=== PATIENT | male | born 1975 | race American Indian/Alaskan Native ===

== ENCOUNTER 2016-11-03 14:47 | Observation (INO) | payer BC, OTHER ==
--- NOTE | 2016-11-03 15:21 | C.PDOC ---
History Of Present Illness 40M c/o diffuse abd "cramping" rad to his back for the last 4 days assoc w constipation that started a couple hours after he ate at a food truck. he has had the abd cramping w constipation before but not the back pain. he took mag citrate twice and also used two enemas with only small BM. decreased appetite no n/v or fever. no abdominal psh. denies other pmh. drinks etoh on weekends. Time Seen by Provider: 11/03/16 15:21 Chief Complaint (Nursing): Abdominal Pain Past Medical History Vital Signs: Last Vital Signs Temp 97.9 F 11/03/16 22:44 Pulse 68 11/03/16 22:44 Resp 20 11/03/16 22:44 BP 125/74 11/03/16 22:44 Pulse Ox 97 11/03/16 23:51 Family History: States: Other (nc) - Social History Hx Alcohol Use: Yes Hx Substance Use: No - Immunization History Hx Tetanus Toxoid Vaccination: Yes Hx Influenza Vaccination: No Hx Pneumococcal Vaccination: No Review Of Systems Except As Marked, All Systems Reviewed And Found Negative. Constitutional: Negative for: Fever, Chills, Weakness Cardiovascular: Negative for: Chest Pain Respiratory: Negative for: Cough, Shortness of Breath Gastrointestinal: Positive for: Abdominal Pain, Constipation. Negative for: Nausea, Vomiting, Diarrhea, Hematochezia Genitourinary: Negative for: Dysuria, Frequency Neurological: Negative for: Weakness, Numbness, Headache Physical Exam - Physical Exam Appears: Well, Non-toxic, No Acute Distress Skin: Warm, Dry Head: Atraumatic Eye(s): bilateral: PERRL Oral Mucosa: Moist Neck: Normal ROM Cardiovascular: Rhythm Regular, No Murmur Respiratory: No Decreased Breath Sounds, No Accessory Muscle Use, No Rhonchi, No Stridor, No Wheezing Gastrointestinal/Abdominal: Bowel Sounds, Soft, Tenderness (diffuse), No Distention, No Guarding, No Rebound Neurological/Psych: Oriented x3, Other (no focal deficits) ED Course And Treatment - Laboratory Results Result Diagrams: 11/03/16 16:22 11/03/16 16:22 O2 Sat by Pulse Oximetry: 97 Medical Decision Making Medical Decision Making: disc w hosp Dr Stern who will admit CT Abdomen and Pelvis With Intravenous Contrast. Dictated and Authenticated by: Joy Angel MD CLINICAL HISTORY: 40 years old, male; Pain; Abdominal pain; Additional info: Diffuse abd pain TECHNIQUE: Axial computed tomography images of the abdomen and pelvis with intravenous contrast. This CT exam was performed using one or more of the following dose reduction techniques : automated exposure control, adjustment of the mA and/or kV according to patient size, and/ or use of iterative reconstruction technique. Coronal and sagittal reformatted images were created and reviewed. CONTRAST: 100 mL of Visipaque 320 administered intravenously. EXAM DATE/TIME: 11/03/2016 3:34 PM COMPARISON: There are no prior studies for comparison. FINDINGS: Lower thorax: Heart size is normal. There is a small hiatal hernia. Lung bases are clear ABDOMEN: Liver: There is a 1.9 x 1.8 cm enhancing lesion in the dome of the liver on the right. No other abnormalities are seen in the liver. Gallbladder and bile ducts: Gallbladder is distended. There is a tiny calcified stone. Common bile duct is unremarkable. Pancreas: unremarkable Spleen: unremarkable Adrenals: unremarkable Kidneys and ureters: unremarkable Stomach and bowel: Stomach is partially distended. Rotation is normal. There is mild duodenal and proximal jejunal wall and fold thickening. There is mild distention of mid small bowel loops with airfluid levels. There is no ileal wall thickening. There is no obstruction. Terminal ileum is unremarkable. Appendix is not visualized. There is no pericecal inflammation. Colon is distended. There are air fluid levels in the colon. There is an air-fluid level in the rectum. Appendix: See stomach and bowel PELVIS: Bladder: unremarkable Reproductive: Seminal vesicles and prostate are unremarkable. ABDOMEN and PELVIS: Intraperitoneal space: There is no free air or free fluid. Bones/joints: There Are no acute osseous abnormalities. There is a benign appearing lucent lesion with sclerotic margins in the right hip. Soft tissues: unremarkable Vasculature: Vascular structures are unremarkable. Lymph nodes: There is no pathologic adenopathy. IMPRESSION: Small enhancing lesion in the dome of the liver possibly hemangioma ; no acute solid visceral abnormality; enteritis versus gastroenteritis with ileus. Disposition - Disposition Disposition: HOSPITALIZED Disposition Time: 19:10 Condition: STABLE - Clinical Impression Clinical Impression: Ileus, Enteritis
[2016-11-03] MEDS ORDERED: Iohexol 240 (50 ml) ONE (16:12)
[2016-11-03 16:24] LABS: BASO # 0.1 K/uL (0.0-0.2); BASO % 0.7 % (0.0-2.0); EOS # 0.3 K/uL (0.0-0.7); EOS % 1.9 % (0.0-4.0); HEMATOCRIT 41.3 % (35.0-51.0); LYMPH # 2.8 K/uL (1.0-4.3); LYMPH % 15.4 % (20.0-40.0); MEAN CELL VOLUME 96.5 fL (80.0-94.0); MEAN CORPUSCULAR HEMOGLOBIN 31.9 pg (27.0-31.0); MEAN CORPUSCULAR HGB CONC 33.1 g/dL (33.0-37.0); MEAN PLATELET VOLUME 8.7 fL (7.2-11.7); MONO # 0.9 K/uL (0.0-0.8); MONO % 4.9 % (0.0-10.0); RED CELL DISTRIBUTION WIDTH 13.7 % (11.5-14.5); WHITE BLOOD COUNT 17.9 K/uL (4.8-10.8)
[2016-11-03 16:28] LABS: RBC URINE 11 /hpf (0-3); URINE BILIRUBIN NEGATIVE (NEGATIVE); URINE BLOOD 1+ (NEGATIVE); URINE COLOR Amber (YELLOW); URINE GLUCOSE (UA) NORMAL (Normal); URINE KETONE 1+ mg/dL (NEGATIVE); URINE LEUKOCYTE ESTERASE NEG Leu/uL (Negative); URINE PROTEIN 1+ mg/dL (NEGATIVE); URINE UROBILINOGEN NORMAL mg/dL (0.2-1.0); WBC URINE 1 /hpf (0-5)
[2016-11-03 16:33] LABS: CHLORIDE 93 mmol/L (98-107); POTASSIUM 4.7 mmol/L (3.6-5.2); SODIUM 135 mmol/L (132-148)
[2016-11-03 16:35] LABS: ALB/GLOB RATIO 1.2 (1.0-2.1); AST/SGOT 38 U/L (17-59); BILIRUBIN,TOTAL 0.9 mg/dL (0.2-1.3); CARBON DIOXIDE 29 mmol/L (22-30); GFR AFRICAN-AMERICAN > 60; TOTAL PROTEIN 8.3 g/dL (6.3-8.3)
[2016-11-03 16:36] LABS: ALKALINE PHOSPHATASE 68 U/L (38-126); ALT/SGPT 23 U/L (21-72); BLOOD UREA NITROGEN 14 mg/dL (9-20); CALCIUM 8.9 mg/dl (8.6-10.4); GLUCOSE,RANDOM 83 mg/dL (75-110)
[2016-11-03] MEDS ORDERED: Iohexol 240 (50 ml) PO STA (16:42)
[2016-11-03] MEDS ORDERED: Iodixanol 320 MG/ML 100 ML BOTTLE IV ONE (17:20)
--- NOTE | 2016-11-03 19:00 | CT ---
EXAM: CT Abdomen and Pelvis With Intravenous Contrast. CLINICAL HISTORY: 40 years old, male; Pain; Abdominal pain; Additional info: Diffuse abd pain TECHNIQUE: Axial computed tomography images of the abdomen and pelvis with intravenous contrast. This CT exam was performed using one or more of the following dose reduction techniques: automated exposure control, adjustment of the mA and/or kV according to patient size, and/or use of iterative reconstruction technique. Coronal and sagittal reformatted images were created and reviewed. CONTRAST: 100 mL of Visipaque 320 administered intravenously. EXAM DATE/TIME: 11/03/2016 3:34 PM COMPARISON: There are no prior studies for comparison. FINDINGS: Lower thorax: Heart size is normal. There is a small hiatal hernia. Lung bases are clear ABDOMEN: Liver: There is a 1.9 x 1.8 cm enhancing lesion in the dome of the liver on the right. No other abnormalities are seen in the liver. Gallbladder and bile ducts: Gallbladder is distended. There is a tiny calcified stone. Common bile duct is unremarkable. Pancreas: unremarkable Spleen: unremarkable Adrenals: unremarkable Kidneys and ureters: unremarkable Stomach and bowel: Stomach is partially distended. Rotation is normal. There is mild duodenal and proximal jejunal wall and fold thickening. There is mild distention of mid small bowel loops with air-fluid levels. There is no ileal wall thickening. There is no obstruction. Terminal ileum is unremarkable. Appendix is not visualized. There is no pericecal inflammation. Colon is distended. There are air fluid levels in the colon. There is an air-fluid level in the rectum. Appendix: See stomach and bowel PELVIS: Bladder: unremarkable Reproductive: Seminal vesicles and prostate are unremarkable. ABDOMEN and PELVIS: Intraperitoneal space: There is no free air or free fluid. Bones/joints: There Are no acute osseous abnormalities. There is a benign appearing lucent lesion with sclerotic margins in the right hip. Soft tissues: unremarkable Vasculature: Vascular structures are unremarkable. Lymph nodes: There is no pathologic adenopathy. IMPRESSION: Small enhancing lesion in the dome of the liver possibly hemangioma; no acute solid visceral abnormality; enteritis versus gastroenteritis with ileus Additional findings as described above.
[2016-11-03] MEDS ORDERED: Sodium Chloride 0.9% 1,000 ML IV ONE (19:04)
[2016-11-03] MEDS ORDERED: metroNIDAZOLE IV 500 mg/100 ml 100 ML IVPB STA (19:04)
[2016-11-03] MEDS ORDERED: Ciprofloxacin 400mg/200ml D5W 200 ML IVPB STA (19:04)
[2016-11-03] MEDS ORDERED: Sodium Chloride 0.9% 1,000 ML IV SCH (19:15)
[2016-11-03] MEDS ORDERED: Sodium Chloride 0.9% 1,000 ML ONE (19:20)
[2016-11-03] MEDS ORDERED: Morphine 4 MG/ML VIAL ONE (19:20)
--- NOTE | 2016-11-03 20:36 | CP.PCM.HP ---
History of Present Illness - History of Present Illness History of Present Illness: CC: diffuse abdominal pain/cramping rad to back x 4 days with associated constipation HPI: 40M with no PMHx - presents c/o diffuse abdominal pain/cramping for the last 4 days, with associated constipation. This occured several hours after eating at a food truck. He describes his abdomen as gradually distending, and the pain as gradually increasing, with radiation to his back. He denies a history of abdominal problems or cyclical abdominal pain. He took mag citrate x2 and also used two enemas with minimal relief, producing 3 low volume liquid BM's without formed stool. He also attempted apple cider vinegar and prune juice without relief. He describes his abdomen as tight/bloated, and admits passing gas relieves some pain/pressure. Eating exacerbates the pain, and today is the first day that he refrained from food completely. Denies f/c, chest pain , SOB, n/v, diarrhea, hematochezia, dysuria, LE swelling, or any additional acute complaints. 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 PMD: [place] Present on Admission - Present on Admission Any Indicators Present on Admission: No Review of Systems - Constitutional Constitutional: absent: Chills, Fever, Headache - EENT Eyes: absent: Blind Spots, Blurred Vision Ears: absent: Decreased Hearing, Ear Discharge Nose/Mouth/Throat: absent: Epistaxis, Nasal Congestion, Nose Pain - Cardiovascular Cardiovascular: absent: Chest Pain, Chest Pain at Rest, Dyspnea - Respiratory Respiratory: absent: Cough, Dyspnea, Hemoptysis - Gastrointestinal Gastrointestinal: Bloating, Constipation, Cramping. absent: Diarrhea, Nausea, Vomiting - Genitourinary Genitourinary: absent: Change in Urinary Stream, Difficulty Urinating, Dysuria - Musculoskeletal Musculoskeletal: absent: Arthralgias, Muscle Weakness - Neurological Neurological: absent: Confusion, Dizziness, Numbness, Headaches, Weakness - Psychiatric Psychiatric: absent: Abnormal Sleep Pattern, Anhedonia, Anxiety - Hematologic/Lymphatic Hematologic: absent: Easy Bleeding, Easy Bruising, Lymphadenopathy Past Patient History - Past Social History Smoking Status: Heavy Smoker > 10 Cigarettes Daily - PSYCHIATRIC Hx Substance Use: No - SURGICAL HISTORY Hx Orthopedic Surgery: Yes (Lt knee 2015) - ANESTHESIA Hx Anesthesia: Yes Hx Anesthesia Reactions: No Meds Allergies/Adverse Reactions: Allergies Allergy/AdvReac Type Severity Reaction Status Date / Time No Known Allergies Allergy Verified 11/03/16 14:54 Physical Exam - Constitutional Appears: Non-toxic, No Acute Distress - Head Exam Head Exam: ATRAUMATIC, NORMAL INSPECTION - Eye Exam Eye Exam: EOMI, Normal appearance - ENT Exam ENT Exam: Mucous Membranes Moist - Respiratory Exam Respiratory Exam: Clear to Auscultation Bilateral, NORMAL BREATHING PATTERN. absent: Wheezes - Cardiovascular Exam Cardiovascular Exam: REGULAR RHYTHM, +S1, +S2 - GI/Abdominal Exam GI & Abdominal Exam: Diminished Bowel Sounds, Distended, Normal Bowel Sounds, Soft, Tenderness (diffuse). absent: Firm, Guarding - Extremities Exam Extremities exam: Negative for: pedal edema, tenderness - Neurological Exam Neurological exam: Alert, CN II-XII Intact, Oriented x3 - Psychiatric Exam Psychiatric exam: Normal Affect, Normal Mood - Skin Skin Exam: Dry, Intact, Normal Color Results - Vital Signs Recent Vital Signs: Last Vital Signs Temp 98.7 F 11/03/16 19:42 Pulse 85 11/03/16 19:42 Resp 18 11/03/16 19:42 BP 130/73 11/03/16 19:42 Pulse Ox 100 11/03/16 19:42 - Labs Result Diagrams: 11/04/16 06:08 11/04/16 06:08 Assessment & Plan - Assessment and Plan (Free Text) Assessment: Abdominal pain gastroenteritis vs enteritis GI Consult, Dr. Gillette (will see pt in am) Zofran 4mg IVP Q6H PRN Rocephin 1gm ivpb daily Flagyl 500mg IVPB Q8 daily Toradol 30mg IVP once, PRN -CT Abdomen and Pelvis With Intravenous Contrast - Small enhancing lesion in the dome of the liver possibly hemangioma; no acute solid visceral abnormality; enteritis versus gastroenteritis with ileus. -NPO Leukocytosis WBC 17.9, neutrophils 17.1 Rocephin 1gm ivpb daily Flagyl 500mg IVPB Q8 daily f/u stool leuko, stool culture, ferritin (as sign of inflammation), Fe, ESR, CRP , B12, folate, am labs Constipation -pt took mag citrate x2 + 2 enemas at thurs/fri with no relief. -NPO -D5 0.5NS w/20KCl at 125cc/hr Prophylaxis Pepcid 20mg IVP Hep SC q12 SCDs Nicotine patch - Date & Time Date: 11/03/16 Time: 08:40
[2016-11-03 21:52] VITALS: RESP 20
[2016-11-03] MEDS: Potassium Ch 20mEq in D5-1/2NS 1,000 ML IV SCH (22:42)
[2016-11-04] MEDS: metroNIDAZOLE IV 500 mg/100 ml 100 ML IVPB SCH ×2 (05:45→14:38)
[2016-11-04 06:18] LABS: BASO # 0.1 K/uL (0.0-0.2); BASO % 0.4 % (0.0-2.0); EOS # 0.4 K/uL (0.0-0.7); EOS % 3.1 % (0.0-4.0); LYMPH # 2.7 K/uL (1.0-4.3); LYMPH % 19.2 % (20.0-40.0); MEAN CELL VOLUME 97.5 fL (80.0-94.0); MEAN CORPUSCULAR HEMOGLOBIN 32.4 pg (27.0-31.0); MEAN CORPUSCULAR HGB CONC 33.2 g/dL (33.0-37.0); MEAN PLATELET VOLUME 8.9 fL (7.2-11.7); MONO # 0.8 K/uL (0.0-0.8); MONO % 5.8 % (0.0-10.0); RED CELL DISTRIBUTION WIDTH 13.4 % (11.5-14.5)
[2016-11-04 06:34] LABS: CHLORIDE 98 mmol/L (98-107); SODIUM 137 mmol/L (132-148)
[2016-11-04 06:35] LABS: POTASSIUM 4.3 mmol/L (3.6-5.2)
[2016-11-04 06:36] LABS: GFR AFRICAN-AMERICAN > 60
[2016-11-04 06:37] LABS: ALB/GLOB RATIO 1.2 (1.0-2.1); ALKALINE PHOSPHATASE 68 U/L (38-126); ALT/SGPT 27 U/L (21-72); AST/SGOT 24 U/L (17-59); BLOOD UREA NITROGEN 11 mg/dL (9-20); CALCIUM 8.1 mg/dl (8.6-10.4); CARBON DIOXIDE 28 mmol/L (22-30); GLUCOSE,RANDOM 96 mg/dL (75-110); MAGNESIUM 2.4 mg/dL (1.6-2.3); PHOSPHOROUS 3.4 mg/dL (2.5-4.5); TOTAL PROTEIN 6.7 g/dL (6.3-8.3)
[2016-11-04] MEDS: Potassium Ch 20mEq in D5-1/2NS 1,000 ML IV SCH ×4 (07:00→21:22)
[2016-11-04 07:36] LABS: FOLATE 14.6 ng/mL
--- NOTE | 2016-11-04 10:32 | CP.PCM.PN ---
<Leonel Dennis - Last Filed: 11/04/16 17:32> Subjective - Date & Time of Evaluation Date of Evaluation: 11/04/16 Time of Evaluation: 09:00 - Subjective Subjective: PGY2 on medicine Dr. Antony service: Pt seen and examined at bedside this morning. Pt said he was able to pass BM last night and three times this morning. Pt said his abdominal pain improved since yesterday. In the afternoon when Flagyl was started, patient complained neck glands swelling up without itchiness or rash. Patient said symptoms resolved after stopping Flagyl. Objective - Vital Signs/Intake and Output Vital Signs (last 24 hours): Temp Pulse Resp BP Pulse Ox 98.0 F 66 20 117/74 98 11/04/16 08:30 11/04/16 08:30 11/04/16 08:30 11/04/16 08:30 11/04/16 08:30 Intake and Output: 11/04/16 11/04/16 06:59 18:59 Intake Total 975 Balance 975 - Medications Medications: Current Medications Famotidine (Pepcid) 20 mg IVP DAILY [facility] Last Admin: 11/03/16 22:41 Dose: 20 mg Heparin Sodium (Porcine) (Heparin) 5,000 units SC Q12 [facility] Potassium Chloride/Dextrose/Sod Cl (Potassium Chl 20 Meq In D5-1/2ns) 1,000 mls @ 125 mls/hr IV .Q8H [facility] Last Admin: 11/04/16 07:00 Dose: 125 mls/hr Ceftriaxone Sodium 1 gm/ (Sodium Chloride) 100 mls @ 100 mls/hr IVPB DAILY [facility] Metronidazole (Flagyl) 100 mls @ 100 mls/hr IVPB Q8 [facility] Last Admin: 11/04/16 05:45 Dose: 100 mls/hr Ketorolac Tromethamine (Toradol) 30 mg IVP ONCE PRN PRN Reason: Pain, severe (8-10) Ondansetron HCl (Zofran Inj) 4 mg IVP Q6H PRN PRN Reason: Nausea/Vomiting - Labs Labs: 11/04/16 06:08 11/04/16 06:08 APTT 37 SECONDS (21-34) H 11/04/16 06:08 - Constitutional Appears: Non-toxic, No Acute Distress - Head Exam Head Exam: NORMAL INSPECTION, NORMOCEPHALIC - Eye Exam Eye Exam: Normal appearance Pupil Exam: NORMAL ACCOMODATION - Respiratory Exam Respiratory Exam: Clear to Ausculation Bilateral, NORMAL BREATHING PATTERN. absent: Rhonchi, Wheezes - Cardiovascular Exam Cardiovascular Exam: REGULAR RHYTHM, +S1, +S2. absent: Gallop, Rubs - GI/Abdominal Exam GI & Abdominal Exam: Soft, Normal Bowel Sounds - Extremities Exam Extremities Exam: absent: Pedal Edema - Neurological Exam Neurological Exam: Alert, Awake, Oriented x3 - Psychiatric Exam Psychiatric exam: Normal Affect, Normal Mood - Skin Skin Exam: Dry, Intact Assessment and Plan - Assessment and Plan (Free Text) Assessment: Abdominal pain gastroenteritis vs enteritis GI Consult, Dr. Gillette (will see pt in am) Zofran 4mg IVP Q6H PRN Rocephin 1gm ivpb daily Flagyl stopped after neck swelling. Toradol 30mg IVP once, PRN -CT Abdomen and Pelvis With Intravenous Contrast - Small enhancing lesion in the dome of the liver possibly hemangioma; no acute solid visceral abnormality; enteritis versus gastroenteritis with ileus. -NPO Leukocytosis WBC 14 today, no more left shift Rocephin 1gm ivpb daily Flagyl 500mg IVPB Q8 daily ESR and CRP elevated f/u stool leuko, stool culture, ferritin (as sign of inflammation), Fe, ESR, CRP , B12, folate, am labs Constipation -pt took mag citrate x2 + 2 enemas at thurs/fri with no relief. -NPO -D5 0.5NS w/20KCl at 125cc/hr Prophylaxis Pepcid 20mg IVP Hep SC q12 SCDs Nicotine patch <Amarjit Antony H - Last Filed: 11/04/16 18:38> Objective - Vital Signs/Intake and Output Vital Signs (last 24 hours): Temp Pulse Resp BP Pulse Ox 97.4 F L 67 20 159/92 H 98 11/04/16 16:00 11/04/16 16:00 11/04/16 16:00 11/04/16 16:00 11/04/16 16:00 Intake and Output: 11/04/16 11/04/16 06:59 18:59 Intake Total 975 1040 Balance 975 1040 - Medications Medications: Current Medications Famotidine (Pepcid) 20 mg IVP DAILY [facility] Last Admin: 11/04/16 10:43 Dose: 20 mg Heparin Sodium (Porcine) (Heparin) 5,000 units SC Q12 [facility] Last Admin: 11/04/16 10:42 Dose: 5,000 units Potassium Chloride/Dextrose/Sod Cl (Potassium Chl 20 Meq In D5-1/2ns) 1,000 mls @ 125 mls/hr IV .Q8H [facility] Last Admin: 11/04/16 17:20 Dose: 125 mls/hr Ceftriaxone Sodium 1 gm/ (Sodium Chloride) 100 mls @ 100 mls/hr IVPB DAILY [facility] Last Admin: 11/04/16 10:43 Dose: 100 mls/hr Metronidazole (Flagyl) 100 mls @ 100 mls/hr IVPB Q8 [facility] Last Admin: 11/04/16 14:38 Dose: 100 mls/hr Ketorolac Tromethamine (Toradol) 30 mg IVP ONCE PRN PRN Reason: Pain, severe (8-10) Ondansetron HCl (Zofran Inj) 4 mg IVP Q6H PRN PRN Reason: Nausea/Vomiting - Labs Labs: 11/04/16 06:08 11/04/16 06:08 APTT 37 SECONDS (21-34) H 11/04/16 06:08 Attending/Attestation - Attestation I have personally seen and examined this patient.: Yes I have fully participated in the care of the patient.: Yes I have reviewed all pertinent clinical information, including history, physical exam and plan: Yes Notes (Text): Medical Attending: Patient was seen and examined by me. Agree with the above note by the resident. When seen in the morning he appeared well, he denied having abdominal pain and was wondering about eating - however his WBC which while it is decreased from before was still elevated so will keep NPO. He's already on IVF at this time. thank you Amarjit Antony
--- NOTE | 2016-11-04 14:07 | CP.PCM.CON ---
<Migeu Rushing - Last Filed: 11/04/16 14:01> History of Present Illness - History of Present Illness History of Present Illness: PGY4 GI Fellow Consult Note Patient is a 40yo male with no significant PMHx who presented to the ED with abdominal pain. 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 He had been seen earlier in the week by his PCP for a URI and given Rx for amoxicillin but had not obtained the prescription until . , he decided to take a few doses of the amoxicillin and continued this for two days. He develped progressively worsening abdominal distention, cramping pain and constipation. He drank two bottles of Magnesium citrate as well as prune juice and suppositories without passage of stool. As pain continued, he came to the ED for further evaluation. He was kept NPO overnight. Since last evening he has been able to pass multiple BMs and is feeling better overall. Denies any nausea , vomiting, weight loss. PMHx: Denies PSHx: left knee patellar fx repair FHx: Mother - cancer (unknown type), DM, CAD; Father - Esophageal cancer Social: smokes 1/2ppd, drinks EtOH (~18, 18oz per weekend), denies illicit drug use Endo: Denies prior endoscopic evaluation Review of Systems - Constitutional Constitutional: absent: Anorexia, Chills, Fever, Weight Loss, Weakness - EENT Eyes: absent: Change in Vision Nose/Mouth/Throat: absent: Sore Throat - Cardiovascular Cardiovascular: absent: Chest Pain, Dyspnea, Dyspnea on Exertion - Respiratory Respiratory: absent: Cough, Dyspnea, Excessive Mucous Production - Gastrointestinal Gastrointestinal: Abdominal Pain, Constipation, Cramping. absent: Bloating, Diarrhea, Dyspepsia, Dysphagia, Heartburn, Hematemesis, Hematochezia, Loose Stools, Melena, Nausea, Odynophagia, Vomiting - Genitourinary Genitourinary: absent: Dysuria, Urinary Frequency, Urinary Urgency - Musculoskeletal Musculoskeletal: absent: Back Pain, Neck Pain - Integumentary Integumentary: absent: New Lesions, Rash - Neurological Neurological: absent: Dizziness, Numbness, Focal Weakness - Psychiatric Psychiatric: absent: Anxiety, Depression - Endocrine Endocrine: absent: Polydipsia, Polyphagia, Polyuria - Hematologic/Lymphatic Hematologic: absent: Easy Bleeding, Easy Bruising, Lymphadenopathy Past Patient History - Past Medical History & Family History Past Medical History?: No - Past Social History Smoking Status: Heavy Smoker > 10 Cigarettes Daily - MUSCULOSKELETAL/RHEUMATOLOGICAL Hx Falls: No - PSYCHIATRIC Hx Substance Use: No - SURGICAL HISTORY Hx Orthopedic Surgery: Yes (Lt knee 2015) - ANESTHESIA Hx Anesthesia: Yes Hx Anesthesia Reactions: No Meds Allergies/Adverse Reactions: Allergies Allergy/AdvReac Type Severity Reaction Status Date / Time No Known Allergies Allergy Verified 11/03/16 14:54 - Medications Medications: Current Medications Famotidine (Pepcid) 20 mg IVP DAILY [facility] Last Admin: 11/04/16 10:43 Dose: 20 mg Heparin Sodium (Porcine) (Heparin) 5,000 units SC Q12 [facility] Last Admin: 11/04/16 10:42 Dose: 5,000 units Potassium Chloride/Dextrose/Sod Cl (Potassium Chl 20 Meq In D5-1/2ns) 1,000 mls @ 125 mls/hr IV .Q8H [facility] Last Admin: 11/04/16 07:00 Dose: 125 mls/hr Ceftriaxone Sodium 1 gm/ (Sodium Chloride) 100 mls @ 100 mls/hr IVPB DAILY [facility] Last Admin: 11/04/16 10:43 Dose: 100 mls/hr Metronidazole (Flagyl) 100 mls @ 100 mls/hr IVPB Q8 [facility] Last Admin: 11/04/16 05:45 Dose: 100 mls/hr Ketorolac Tromethamine (Toradol) 30 mg IVP ONCE PRN PRN Reason: Pain, severe (8-10) Ondansetron HCl (Zofran Inj) 4 mg IVP Q6H PRN PRN Reason: Nausea/Vomiting Physical Exam - Constitutional Appears: Non-toxic, No Acute Distress - Eye Exam Eye Exam: EOMI, PERRL - ENT Exam ENT Exam: Mucous Membranes Moist - Respiratory Exam Respiratory Exam: Clear to Auscultation Bilateral. absent: Rales, Rhonchi, Wheezes - Cardiovascular Exam Cardiovascular Exam: RRR, +S1, +S2 - GI/Abdominal Exam GI & Abdominal Exam: Normal Bowel Sounds, Soft. absent: Distended, Firm, Guarding, Rigid, Tenderness - Extremities Exam Extremities exam: Positive for: normal inspection. Negative for: pedal edema - Neurological Exam Neurological exam: Alert, Oriented x3 - Psychiatric Exam Psychiatric exam: Normal Affect, Normal Mood - Skin Skin Exam: Dry, Warm Results - Vital Signs Recent Vital Signs: Last Vital Signs Temp 98.0 F 11/04/16 08:30 Pulse 66 11/04/16 08:30 Resp 20 11/04/16 08:30 BP 117/74 11/04/16 08:30 Pulse Ox 98 11/04/16 08:30 - Labs Result Diagrams: 11/04/16 06:08 11/04/16 06:08 Labs: Laboratory Results - last 24 hr 11/03/16 11/04/16 22:20 06:08 WBC 14.0 H RBC 4.10 L Hgb 13.3 Hct 40.0 MCV 97.5 H MCH 32.4 H MCHC 33.2 RDW 13.4 Plt Count 212 MPV 8.9 Neut % (Auto) 71.5 Lymph % (Auto) 19.2 L Taliaferro % (Auto) 5.8 Eos % (Auto) 3.1 Baso % (Auto) 0.4 Neut # 10.0 H Lymph # 2.7 Taliaferro # 0.8 Eos # 0.4 Baso # 0.1 ESR 35 H APTT 37 H Sodium 137 Potassium 4.3 Chloride 98 Carbon Dioxide 28 Anion Gap 15 BUN 11 Creatinine 1.0 Est GFR ( Amer) > 60 Est GFR (Non-Af Amer) > 60 Random Glucose 96 Calcium 8.1 L Phosphorus 3.4 Magnesium 2.4 H Iron 36 L Ferritin 271.0 Total Bilirubin 1.0 AST 24 ALT 27 Alkaline Phosphatase 68 C-React Prot High Sens > 15.00 H Total Protein 6.7 Albumin 3.7 Globulin 3.0 Albumin/Globulin Ratio 1.2 Vitamin B12 > 1000 H Folate 14.6 Stool Leukocytes, Qual Negative Assessment & Plan - Assessment and Plan (Free Text) Assessment: Patient is a 40yo male with no significant PMHx who presented to the ED with abdominal pain. -Enteritis -Constipation, possibly 2/2 above which is now resolving Plan: -Advance to clear liquid diet, slowly advance -Passing BM, no laxative therapy needed presently -IV ABX per primary service - currently Ceftriaxone and Flagyl -Conservative management -Continue to monitor - Date & Time Date: 11/04/16 Time: 12:00 <Aura Segovia - Last Filed: 11/04/16 14:55> Meds - Medications Medications: Current Medications Famotidine (Pepcid) 20 mg IVP DAILY [facility] Last Admin: 11/04/16 10:43 Dose: 20 mg Heparin Sodium (Porcine) (Heparin) 5,000 units SC Q12 [facility] Last Admin: 11/04/16 10:42 Dose: 5,000 units Potassium Chloride/Dextrose/Sod Cl (Potassium Chl 20 Meq In D5-1/2ns) 1,000 mls @ 125 mls/hr IV .Q8H [facility] Last Admin: 11/04/16 14:37 Dose: Not Given Ceftriaxone Sodium 1 gm/ (Sodium Chloride) 100 mls @ 100 mls/hr IVPB DAILY [facility] Last Admin: 11/04/16 10:43 Dose: 100 mls/hr Metronidazole (Flagyl) 100 mls @ 100 mls/hr IVPB Q8 [facility] Last Admin: 11/04/16 14:38 Dose: 100 mls/hr Ketorolac Tromethamine (Toradol) 30 mg IVP ONCE PRN PRN Reason: Pain, severe (8-10) Ondansetron HCl (Zofran Inj) 4 mg IVP Q6H PRN PRN Reason: Nausea/Vomiting Results - Vital Signs Recent Vital Signs: Last Vital Signs Temp 98.0 F 11/04/16 08:30 Pulse 66 11/04/16 08:30 Resp 20 11/04/16 08:30 BP 117/74 11/04/16 08:30 Pulse Ox 98 11/04/16 08:30 - Labs Result Diagrams: 11/04/16 06:08 11/04/16 06:08 Labs: Laboratory Results - last 24 hr 11/03/16 11/04/16 22:20 06:08 WBC 14.0 H RBC 4.10 L Hgb 13.3 Hct 40.0 MCV 97.5 H MCH 32.4 H MCHC 33.2 RDW 13.4 Plt Count 212 MPV 8.9 Neut % (Auto) 71.5 Lymph % (Auto) 19.2 L Taliaferro % (Auto) 5.8 Eos % (Auto) 3.1 Baso % (Auto) 0.4 Neut # 10.0 H Lymph # 2.7 Taliaferro # 0.8 Eos # 0.4 Baso # 0.1 ESR 35 H APTT 37 H Sodium 137 Potassium 4.3 Chloride 98 Carbon Dioxide 28 Anion Gap 15 BUN 11 Creatinine 1.0 Est GFR ( Amer) > 60 Est GFR (Non-Af Amer) > 60 Random Glucose 96 Calcium 8.1 L Phosphorus 3.4 Magnesium 2.4 H Iron 36 L Ferritin 271.0 Total Bilirubin 1.0 AST 24 ALT 27 Alkaline Phosphatase 68 C-React Prot High Sens > 15.00 H Total Protein 6.7 Albumin 3.7 Globulin 3.0 Albumin/Globulin Ratio 1.2 Vitamin B12 > 1000 H Folate 14.6 Stool Leukocytes, Qual Negative Attending/Attestation - Attestation I have personally seen and examined this patient.: Yes I have fully participated in the care of the patient.: Yes I have reviewed all pertinent clinical information: Yes Notes (Text): Patient seen and examined with GI fellow. Agree with his note as documented above with the following additions/exceptions. This is a 40 year old male with no significant past medical history who presents with complaint of abdominal pain, bloating and nausea after eating hamburger. No chronic GI symptoms or FH of inflammatory bowel disease. CT shows enteritis with mildly dilated bowel loops, possible ileus. He is feeling improved today, abdominal pain better. He is having loose BM today, non bloody. No nausea or vomiting. Would continue supportive care, IVF hydration, antiemetic as needed, pain control; obtain stool studies. Start on clear liquid diet as tolerated. 11/04/16 14:51
[2016-11-05] MEDS: Potassium Ch 20mEq in D5-1/2NS 1,000 ML IV SCH ×3 (01:44→14:23)
[2016-11-05 07:13] LABS: CHLORIDE 98 mmol/L (98-107)
[2016-11-05 07:14] LABS: POTASSIUM 4.3 mmol/L (3.6-5.2); SODIUM 140 mmol/L (132-148)
[2016-11-05 07:16] LABS: ALB/GLOB RATIO 1.2 (1.0-2.1); ALKALINE PHOSPHATASE 69 U/L (38-126); ALT/SGPT 19 U/L (21-72); AST/SGOT 25 U/L (17-59); BILIRUBIN,TOTAL 0.4 mg/dL (0.2-1.3); BLOOD UREA NITROGEN 7 mg/dL (9-20); CARBON DIOXIDE 31 mmol/L (22-30); GFR AFRICAN-AMERICAN > 60; GLUCOSE,RANDOM 108 mg/dL (75-110); TOTAL PROTEIN 7.2 g/dL (6.3-8.3)
[2016-11-05 07:17] LABS: MAGNESIUM 2.3 mg/dL (1.6-2.3); PHOSPHOROUS 3.4 mg/dL (2.5-4.5)
[2016-11-05 07:23] LABS: BASO % 0.5 % (0.0-2.0); EOS # 0.4 K/uL (0.0-0.7); EOS % 4.5 % (0.0-4.0); HEMATOCRIT 42.8 % (35.0-51.0); LYMPH # 2.7 K/uL (1.0-4.3); LYMPH % 28.6 % (20.0-40.0); MEAN CELL VOLUME 97.8 fL (80.0-94.0); MEAN CORPUSCULAR HGB CONC 33.7 g/dL (33.0-37.0); MEAN PLATELET VOLUME 8.6 fL (7.2-11.7); MONO # 0.5 K/uL (0.0-0.8); MONO % 5.3 % (0.0-10.0); RED CELL DISTRIBUTION WIDTH 13.5 % (11.5-14.5); WHITE BLOOD COUNT 9.4 K/uL (4.8-10.8)
[2016-11-05 07:45] VITALS: PULSE 66
--- NOTE | 2016-11-05 08:53 | CP.PCM.PN ---
<HeathersAraceli - Last Filed: 11/05/16 12:09> Subjective - Date & Time of Evaluation Date of Evaluation: 11/05/16 Time of Evaluation: 08:48 - Subjective Subjective: Gastroenterology Fellow/PGY4 Progress Note Patient denies abdominal pain. Tolerating clear liquids without nausea or vomiting.Admits to loose stools through yesterday with last episode at 130AM. A 12-point review of systems negative except for as above. Objective - Vital Signs/Intake and Output Vital Signs (last 24 hours): Temp Pulse Resp BP Pulse Ox 98.9 F 66 20 106/66 98 11/05/16 07:44 11/05/16 07:44 11/05/16 07:44 11/05/16 07:44 11/05/16 07:44 Intake and Output: 11/05/16 11/05/16 06:59 18:59 Intake Total 800 Balance 800 - Medications Medications: Current Medications Famotidine (Pepcid) 20 mg IVP DAILY [facility] Last Admin: 11/04/16 10:43 Dose: 20 mg Heparin Sodium (Porcine) (Heparin) 5,000 units SC Q12 [facility] Last Admin: 11/04/16 21:18 Dose: 5,000 units Potassium Chloride/Dextrose/Sod Cl (Potassium Chl 20 Meq In D5-1/2ns) 1,000 mls @ 125 mls/hr IV .Q8H [facility] Last Admin: 11/05/16 01:44 Dose: 125 mls/hr Ceftriaxone Sodium 1 gm/ (Sodium Chloride) 100 mls @ 100 mls/hr IVPB DAILY [facility] Last Admin: 11/04/16 10:43 Dose: 100 mls/hr Ketorolac Tromethamine (Toradol) 30 mg IVP ONCE PRN PRN Reason: Pain, severe (8-10) Ondansetron HCl (Zofran Inj) 4 mg IVP Q6H PRN PRN Reason: Nausea/Vomiting - Labs Labs: 11/05/16 06:56 11/05/16 06:56 APTT 37 SECONDS (21-34) H 11/04/16 06:08 - Constitutional Appears: Non-toxic, No Acute Distress - Head Exam Head Exam: ATRAUMATIC, NORMOCEPHALIC - Eye Exam Eye Exam: EOMI, PERRL Pupil Exam: PERRL. absent: Miosis, Mydriatic - ENT Exam ENT Exam: Mucous Membranes Moist, Normal Oropharynx - Neck Exam Neck Exam: Full ROM, Normal Inspection - Respiratory Exam Respiratory Exam: Clear to Ausculation Bilateral. absent: Rales, Rhonchi, Wheezes - Cardiovascular Exam Cardiovascular Exam: RRR, +S1, +S2. absent: Gallop, Rubs - GI/Abdominal Exam GI & Abdominal Exam: Soft, Normal Bowel Sounds. absent: Distended, Firm, Guarding, Rigid, Tenderness, Mass, Organomegaly, Rebound - Extremities Exam Extremities Exam: Full ROM. absent: Pedal Edema - Neurological Exam Neurological Exam: Alert, Awake - Psychiatric Exam Psychiatric exam: Normal Affect, Normal Mood - Skin Skin Exam: Dry, Intact, Normal Color, Warm Assessment and Plan - Assessment and Plan (Free Text) Assessment: 40 year old male with no prior medical history presenting with abdominal pain. Frequent loose stools yesterday through 130AM. CT A/P PO/IV contrast showing distended small and large bowel lopps with air-fluid levels, possible ileus. Laboratory findings with improved leukocytosis. No prior EGD or colonoscopy. Plan: >likely gastroenteritis >advance to full liquids, advance as tolerated >continue Ceftriaxone >complete 10 day course >allergy to Flagyl >encouraged oral hydration >pending stool culture/Cdiff >clear for discharge once tolerate diet >follow up outpatient with Dr. Segovia-office information provided <Ashley Pond MD - Last Filed: 11/05/16 17:29> Objective - Vital Signs/Intake and Output Vital Signs (last 24 hours): Temp Pulse Resp BP Pulse Ox 98 F 66 20 122/76 96 11/05/16 15:10 11/05/16 16:20 11/05/16 15:10 11/05/16 15:10 11/05/16 15:10 Intake and Output: 11/05/16 11/05/16 06:59 18:59 Intake Total 800 Balance 800 - Medications Medications: Current Medications Famotidine (Pepcid) 20 mg IVP DAILY [facility] Last Admin: 11/05/16 10:12 Dose: 20 mg Heparin Sodium (Porcine) (Heparin) 5,000 units SC Q12 [facility] Last Admin: 11/05/16 10:12 Dose: 5,000 units Potassium Chloride/Dextrose/Sod Cl (Potassium Chl 20 Meq In D5-1/2ns) 1,000 mls @ 125 mls/hr IV .Q8H [facility] Last Admin: 11/05/16 14:23 Dose: Not Given Ceftriaxone Sodium 1 gm/ (Sodium Chloride) 100 mls @ 100 mls/hr IVPB DAILY [facility] Last Admin: 11/05/16 10:13 Dose: 100 mls/hr Ketorolac Tromethamine (Toradol) 30 mg IVP ONCE PRN PRN Reason: Pain, severe (8-10) Ondansetron HCl (Zofran Inj) 4 mg IVP Q6H PRN PRN Reason: Nausea/Vomiting - Labs Labs: 11/05/16 06:56 11/05/16 06:56 APTT 37 SECONDS (21-34) H 11/04/16 06:08 Attending/Attestation - Attestation I have personally seen and examined this patient.: Yes I have fully participated in the care of the patient.: Yes I have reviewed all pertinent clinical information, including history, physical exam and plan: Yes Notes (Text): 11/05/16 17:22 Patient seen and examined with GI fellow. This is a 40 year old male with no significant past medical history who presents with complaint of abdominal pain, bloating and nausea after eating hamburger. No chronic GI symptoms or FH of inflammatory bowel disease. CT shows enteritis with mildly dilated bowel loops , possible ileus. He is feeling improved today, abdominal pain better. No BM today. No nausea or vomiting. Diet as tolerated. Can be discharged to home with completion of 7 days antibiotics and follow up with Dr Segovia in 3-4 weeks
--- NOTE | 2016-11-05 16:58 | CP.PCM.DIS ---
<Amarjit Mark - Last Filed: 11/05/16 20:35> Provider - Provider Date of Admission: 11/03/16 19:49 Attending physician: Juancarlos Stern MD Consults: GI: Dr. Gillette Time Spent in preparation of Discharge (in minutes): 35 Hospital Course - Lab Results Lab Results: Most Recent Lab Values WBC 9.4 K/uL (4.8-10.8) 11/05/16 06:56 RBC 4.38 Mil/uL (4.40-5.90) L 11/05/16 06:56 Hgb 14.4 g/dL (12.0-18.0) 11/05/16 06:56 Hct 42.8 % (35.0-51.0) 11/05/16 06:56 MCV 97.8 fL (80.0-94.0) H 11/05/16 06:56 MCH 33.0 pg (27.0-31.0) H 11/05/16 06:56 MCHC 33.7 g/dL (33.0-37.0) 11/05/16 06:56 RDW 13.5 % (11.5-14.5) 11/05/16 06:56 Plt Count 254 K/uL (130-400) 11/05/16 06:56 MPV 8.6 fL (7.2-11.7) 11/05/16 06:56 Neut % (Auto) 61.1 % (50.0-75.0) 11/05/16 06:56 Lymph % (Auto) 28.6 % (20.0-40.0) 11/05/16 06:56 [place] % (Auto) 5.3 % (0.0-10.0) 11/05/16 06:56 Eos % (Auto) 4.5 % (0.0-4.0) H 11/05/16 06:56 Baso % (Auto) 0.5 % (0.0-2.0) 11/05/16 06:56 Neut # 5.8 K/uL (1.8-7.0) 11/05/16 06:56 Lymph # 2.7 K/uL (1.0-4.3) 11/05/16 06:56 [place] # 0.5 K/uL (0.0-0.8) 11/05/16 06:56 Eos # 0.4 K/uL (0.0-0.7) 11/05/16 06:56 Baso # 0.0 K/uL (0.0-0.2) 11/05/16 06:56 ESR 35 mm/hr (0-15) H 11/04/16 06:08 APTT 37 SECONDS (21-34) H 11/04/16 06:08 Sodium 140 mmol/L (132-148) 11/05/16 06:56 Potassium 4.3 mmol/L (3.6-5.2) 11/05/16 06:56 Chloride 98 mmol/L (98-107) 11/05/16 06:56 Carbon Dioxide 31 mmol/L (22-30) H 11/05/16 06:56 Anion Gap 15 (10-20) 11/05/16 06:56 BUN 7 mg/dL (9-20) L 11/05/16 06:56 Creatinine 1.0 MG/DL (0.8-1.5) 11/05/16 06:56 Est GFR ( Amer) > 60 11/05/16 06:56 Est GFR (Non-Af Amer) > 60 11/05/16 06:56 Random Glucose 108 mg/dL (75-110) 11/05/16 06:56 Calcium 9.0 mg/dl (8.6-10.4) 11/05/16 06:56 Phosphorus 3.4 mg/dL (2.5-4.5) 11/05/16 06:56 Magnesium 2.3 mg/dL (1.6-2.3) 11/05/16 06:56 Iron 36 ug/dL (49-181) L 11/04/16 06:08 Ferritin 271.0 ng/mL 11/04/16 06:08 Total Bilirubin 0.4 mg/dL (0.2-1.3) 11/05/16 06:56 AST 25 U/L (17-59) 11/05/16 06:56 ALT 19 U/L (21-72) L D 11/05/16 06:56 Alkaline Phosphatase 69 U/L (38-126) 11/05/16 06:56 C-React Prot High Sens > 15.00 mg/L (1.00-3.00) H 11/04/16 06:08 Total Protein 7.2 g/dL (6.3-8.3) 11/05/16 06:56 Albumin 3.9 g/dL (3.5-5.0) 11/05/16 06:56 Globulin 3.3 gm/dL (2.2-3.9) 11/05/16 06:56 Albumin/Globulin Ratio 1.2 (1.0-2.1) 11/05/16 06:56 Lipase 195 U/L (23-300) 11/03/16 16:22 Vitamin B12 > 1000 pg/mL (239-931) H 11/04/16 06:08 Folate 14.6 ng/mL 11/04/16 06:08 Urine Color Bharti (YELLOW) 11/03/16 16:22 Urine Clarity Hazy (Clear) 11/03/16 16:22 Urine pH 6.0 (5.0-8.0) 11/03/16 16:22 Ur Specific [place] 1.029 (1.003-1.030) 11/03/16 16:22 Urine Protein 1+ mg/dL (NEGATIVE) H 11/03/16 16:22 Urine Glucose (UA) Normal mg/dL (Normal) 11/03/16 16:22 Urine Ketones 1+ mg/dL (NEGATIVE) H 11/03/16 16:22 Urine Blood 1+ (NEGATIVE) H 11/03/16 16:22 Urine Nitrate Negative (NEGATIVE) 11/03/16 16:22 Urine Bilirubin Negative (NEGATIVE) 11/03/16 16:22 Urine Urobilinogen Normal mg/dL (0.2-1.0) 11/03/16 16:22 Ur Leukocyte Esterase Neg Deanna/uL (Negative) 11/03/16 16:22 Urine WBC (Auto) 1 /hpf (0-5) 11/03/16 16:22 Urine RBC (Auto) 11 /hpf (0-3) H 11/03/16 16:22 Ur Squamous Epith Cells 1 /hpf (0-5) 11/03/16 16:22 Stool Leukocytes, Qual Negative (NEGATIVE) 11/03/16 22:20 - Hospital Course Hospital Course: Upon hospital admission: 40M with no PMHx - presents c/o diffuse abdominal pain/ cramping for the last 4 days, with associated constipation. This occured several hours after eating at a food truck. He describes his abdomen as gradually distending, and the pain as gradually increasing, with radiation to his back. He denies a history of abdominal problems or cyclical abdominal pain. He took mag citrate x2 and also used two enemas with minimal relief, producing 3 low volume liquid BM's without formed stool. He also attempted apple cider vinegar and prune juice without relief. He describes his abdomen as tight/ bloated, and admits passing gas relieves some pain/pressure. Eating exacerbates the pain, and today is the first day that he refrained from food completely. Denies f/c, chest pain, SOB, n/v, diarrhea, hematochezia, dysuria, LE swelling, or any additional acute complaints. 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 PMD: [place] During hospital course, the patient was evaluated and treated for the following : (1) Abdominal pain for which patient was seen by GI , Dr. Gillette. Pt was tx with Zofran 4mg IVP Q6H PRN, Rocephin 1gm ivpb daily, and Flagyl (stopped after neck swelling), Toradol 30mg IVP once, PRN. CT Abdomen and Pelvis With Intravenous Contrast - Small enhancing lesion in the dome of the liver possibly hemangioma; no acute solid visceral abnormality; enteritis versus gastroenteritis with ileus. Patient was initially NPO, then slowly advanced. As his WBC count came down, he began to feel better and tolerate his diet. (2) Leukocytosis for which ESR and CRP were elvated. The patient responded well to the abx above. Upon hospital discharge, the patient was provided with the following instructions: Patient is stable for discharge per Dr. Ventura. Patient should resume all medications as outlined in this document. Additionally, patient should take the new medications listed below (scripts provided). 1. Please make an appointment and follow up with Primary Doctor within one week of discharge. If patient does not have a Primary Doctor, please follow up with [facility] to establish medical care, at [phone]. 2. Please make an appointment and follow up with Dr. Gillette (Wound Nurse) within one week of discharge. Patient should return to ED immediately if symptoms return or worsen. Instructions discussed with patient who understood and agreed. Newly prescribed medications: Cipro 500mg PO BID #10 This is a summary of the patient's hospital admission, see chart for comprehensive detail. - Date & Time of H&P Date of H&P: 11/03/16 Time of H&P: 20:32 Discharge Exam - Additional Findings Additional findings: - Constitutional Appears: Non-toxic, No Acute Distress - Head Exam Head Exam: NORMAL INSPECTION, NORMOCEPHALIC - Eye Exam Eye Exam: Normal appearance Pupil Exam: NORMAL ACCOMODATION - Respiratory Exam Respiratory Exam: Clear to Ausculation Bilateral, NORMAL BREATHING PATTERN. absent: Rhonchi, Wheezes - Cardiovascular Exam Cardiovascular Exam: REGULAR RHYTHM, +S1, +S2. absent: Gallop, Rubs - GI/Abdominal Exam GI & Abdominal Exam: Soft, Normal Bowel Sounds - Extremities Exam Extremities Exam: absent: Pedal Edema - Neurological Exam Neurological Exam: Alert, Awake, Oriented x3 - Psychiatric Exam Psychiatric exam: Normal Affect, Normal Mood - Skin Skin Exam: Dry, Intact Discharge Plan - Discharge Medications Prescriptions: Ciprofloxacin [Cipro] 500 mg PO BID #10 tab - Follow Up Plan Condition: STABLE Disposition: HOME/ ROUTINE Instructions: Ciprofloxacin (By mouth), Ileus (DC), Enteritis (DC) Additional Instructions: Patient is stable for discharge per Dr. Ventura. Patient should resume all medications as outlined in this document. Additionally, patient should take the new medications listed below (scripts provided). 1. Please make an appointment and follow up with Primary Doctor within one week of discharge. If patient does not have a Primary Doctor, please follow up with [facility] to establish medical care, at [phone]. 2. Please make an appointment and follow up with Dr. Gillette (Wound Nurse) within one week of discharge. Patient should return to ED immediately if symptoms return or worsen. Instructions discussed with patient who understood and agreed. Newly prescribed medications: Cipro 500mg PO BID #10 Referrals: Philippe Gillette MD [Staff Provider] - Mary Carbajal MD [Staff Provider] - <Ean Ventura Barak - Last Filed: 11/06/16 14:00> Provider - Provider Date of Admission: 11/03/16 19:49 Attending physician: Juancarlos Stern MD Hospital Course - Lab Results Lab Results: Micro Results 11/04/16 00:57 Stool Stool Culture - Final NO SALMONELLA, SHIGELLA OR CAMPYLOBACTER ISOLATED. Most Recent Lab Values WBC 9.4 K/uL (4.8-10.8) 11/05/16 06:56 RBC 4.38 Mil/uL (4.40-5.90) L 11/05/16 06:56 Hgb 14.4 g/dL (12.0-18.0) 11/05/16 06:56 Hct 42.8 % (35.0-51.0) 11/05/16 06:56 MCV 97.8 fL (80.0-94.0) H 11/05/16 06:56 MCH 33.0 pg (27.0-31.0) H 11/05/16 06:56 MCHC 33.7 g/dL (33.0-37.0) 11/05/16 06:56 RDW 13.5 % (11.5-14.5) 11/05/16 06:56 Plt Count 254 K/uL (130-400) 11/05/16 06:56 MPV 8.6 fL (7.2-11.7) 11/05/16 06:56 Neut % (Auto) 61.1 % (50.0-75.0) 11/05/16 06:56 Lymph % (Auto) 28.6 % (20.0-40.0) 11/05/16 06:56 [place] % (Auto) 5.3 % (0.0-10.0) 11/05/16 06:56 Eos % (Auto) 4.5 % (0.0-4.0) H 11/05/16 06:56 Baso % (Auto) 0.5 % (0.0-2.0) 11/05/16 06:56 Neut # 5.8 K/uL (1.8-7.0) 11/05/16 06:56 Lymph # 2.7 K/uL (1.0-4.3) 11/05/16 06:56 [place] # 0.5 K/uL (0.0-0.8) 11/05/16 06:56 Eos # 0.4 K/uL (0.0-0.7) 11/05/16 06:56 Baso # 0.0 K/uL (0.0-0.2) 11/05/16 06:56 ESR 35 mm/hr (0-15) H 11/04/16 06:08 APTT 37 SECONDS (21-34) H 11/04/16 06:08 Sodium 140 mmol/L (132-148) 11/05/16 06:56 Potassium 4.3 mmol/L (3.6-5.2) 11/05/16 06:56 Chloride 98 mmol/L (98-107) 11/05/16 06:56 Carbon Dioxide 31 mmol/L (22-30) H 11/05/16 06:56 Anion Gap 15 (10-20) 11/05/16 06:56 BUN 7 mg/dL (9-20) L 11/05/16 06:56 Creatinine 1.0 MG/DL (0.8-1.5) 11/05/16 06:56 Est GFR ( Amer) > 60 11/05/16 06:56 Est GFR (Non-Af Amer) > 60 11/05/16 06:56 Random Glucose 108 mg/dL (75-110) 11/05/16 06:56 Calcium 9.0 mg/dl (8.6-10.4) 11/05/16 06:56 Phosphorus 3.4 mg/dL (2.5-4.5) 11/05/16 06:56 Magnesium 2.3 mg/dL (1.6-2.3) 11/05/16 06:56 Iron 36 ug/dL (49-181) L 11/04/16 06:08 Ferritin 271.0 ng/mL 11/04/16 06:08 Total Bilirubin 0.4 mg/dL (0.2-1.3) 11/05/16 06:56 AST 25 U/L (17-59) 11/05/16 06:56 ALT 19 U/L (21-72) L D 11/05/16 06:56 Alkaline Phosphatase 69 U/L (38-126) 11/05/16 06:56 C-React Prot High Sens > 15.00 mg/L (1.00-3.00) H 11/04/16 06:08 Total Protein 7.2 g/dL (6.3-8.3) 11/05/16 06:56 Albumin 3.9 g/dL (3.5-5.0) 11/05/16 06:56 Globulin 3.3 gm/dL (2.2-3.9) 11/05/16 06:56 Albumin/Globulin Ratio 1.2 (1.0-2.1) 11/05/16 06:56 Lipase 195 U/L (23-300) 11/03/16 16:22 Vitamin B12 > 1000 pg/mL (239-931) H 11/04/16 06:08 Folate 14.6 ng/mL 11/04/16 06:08 Urine Color Bharti (YELLOW) 11/03/16 16:22 Urine Clarity Hazy (Clear) 11/03/16 16:22 Urine pH 6.0 (5.0-8.0) 11/03/16 16:22 Ur Specific [place] 1.029 (1.003-1.030) 11/03/16 16:22 Urine Protein 1+ mg/dL (NEGATIVE) H 11/03/16 16:22 Urine Glucose (UA) Normal mg/dL (Normal) 11/03/16 16:22 Urine Ketones 1+ mg/dL (NEGATIVE) H 11/03/16 16:22 Urine Blood 1+ (NEGATIVE) H 11/03/16 16:22 Urine Nitrate Negative (NEGATIVE) 11/03/16 16:22 Urine Bilirubin Negative (NEGATIVE) 11/03/16 16:22 Urine Urobilinogen Normal mg/dL (0.2-1.0) 11/03/16 16:22 Ur Leukocyte Esterase Neg Deanna/uL (Negative) 11/03/16 16:22 Urine WBC (Auto) 1 /hpf (0-5) 11/03/16 16:22 Urine RBC (Auto) 11 /hpf (0-3) H 11/03/16 16:22 Ur Squamous Epith Cells 1 /hpf (0-5) 11/03/16 16:22 Stool Leukocytes, Qual Negative (NEGATIVE) 11/03/16 22:20 Attending/Attestation - Attestation I have personally seen and examined this patient.: Yes I have fully participated in the care of the patient.: Yes I have reviewed all pertinent clinical information, including history, physical exam and plan: Yes Notes (Text): 11/06/16 14:00 Patient was seen and examined at bedside with the resident patient is tolerating diet and abdominal pain is resolved Patient is clear for discharge by GI We will discharge the patient on oral antibiotics and patient will follow with GI as outpatient
[2016-11-05 17:29] VITALS: BP 122/76; TEMP 98; O2SAT 96
== END 2016-11-05 06:55 | disposition home or self-care (01) ==
LOC: C.ER 14:47 → C.9E 19:49 → C.3T 21:26
PROVIDERS: ADMIT Internal Medicine; ATTEND Internal Medicine
DX: R10.9 Unspecified abdominal pain (principal); K56.7 Ileus, unspecified; K52.9 Noninfective gastroenteritis and colitis, unspecified; D72.829 Elevated white blood cell count, unspecified
CPT/HCPCS: 36415; 74177; 80053; 81001; 82607; 82728; 82746; 83540; 83690; 83735; 84100; 85025; 85651; 85730; 86140; 87045; 89055; 96361; 96365; 96366; 96367; 96372; 96375; 96376; 99284; G0378; J0696; J1644; J2270; J7040; Q9966; Q9967